=== PATIENT | female | born 2000 | race Caucasian/White ===

== ENCOUNTER 2025-01-05 16:18 | Emergency (ER) | payer SELFPAY ==
[~2025-01-05] VITALS: Ht 175.3 cm; Wt 136.1 kg
[~2025-01-05 16:18] MED LIST: VALTREX1000 MG PO
[2025-01-05 16:53] LABS: LEUKOCYTE ESTERASE ,URINE SMALL (NEGATIVE); PROTEIN,URINE DIPSTICK TRACE (NEGATIVE); URINE UROBILINOGEN 0.2 mg/dL (0.2 - 1)
[2025-01-05 16:54] LABS: PREGNANCY TEST, URINE NEGATIVE (NEGATIVE)
[2025-01-05 17:05] LABS: EPITHELIAL CELLS,URINE MODERATE /LPF
[2025-01-05] MEDS: KETOROLAC TROMETHAMINE 60 MG/2 ML VIAL IM ONE (17:46)
[2025-01-05] MEDS: CYCLOBENZAPRINE HCL 10 MG TAB PO ONE (17:46)
[2025-01-05] MEDS ORDERED: NAPROSYN500 MG PO (18:24)
[2025-01-05] MEDS ORDERED: CYCLOBENZAPRINE5 MG PO (18:24)
[2025-01-05 18:35] VITALS: PULSE 89; RESP 16; TEMP 98.6; O2SAT 99
== END 2025-01-05 18:40 | disposition home or self-care (01) ==
LOC: ER 18:18
DX: M54.41 Lumbago with sciatica, right side (principal); Y93.E9 Activity, other interior property and clothing maintenance; F17.210 Nicotine dependence, cigarettes, uncomplicated
CPT/HCPCS: 81001; 81025; 99283; J1885